=== PATIENT | female | born 2000 | race Caucasian/White ===

== ENCOUNTER → 2022-04-30 | Emergency (ER) | payer SELFPAY ==
[~2022-04-30] MED LIST: ACETAMINOPHEN 1000 MG/100 ML BAG IVPB ONE; LACTATED RINGERS SOLUTION 1000 ML INFUS.BAG IV ONE; ONDANSETRON 4 MG/2 ML VIAL IVPUSH ONE
[2022-04-30 21:14] VITALS: BMI 35.6
[2022-04-30 22:27] LABS: BASO % 0.5 % (0-2.0); HEMATOCRIT 38.7 % (32.4-45.2); HEMOGLOBIN 12.9 GM/dL (10.7-15.3); LYMPH % 7.8 % (8-40); MCH 27.3 pg (25.7-33.7); MCHC 33.4 g/dl (32.0-36.0); MEAN CELL VOLUME 81.6 fl (80-96); MEAN PLT VOLUME 8.2 fl (7.5-11.1); MONO % 5.8 % (3.8-10.2); NEUT % 85.9 % (42.8-82.8); PLATELET COUNT 223 10^3/uL (134-434); RBC 4.74 M/mm3 (3.60-5.2); RDW 14.6 % (11.6-15.6); WHITE BLOOD COUNT 11.9 K/mm3 (4.0-10.0)
[2022-04-30 22:37] LABS: CALCIUM 8.7 mg/dL (8.5-10.1)
[2022-04-30 22:38] LABS: ALBUMIN 3.6 g/dl (3.4-5.0); BLOOD UREA NITROGEN 9.3 mg/dL (7-18)
[2022-04-30 22:41] LABS: CREATININE 0.6 mg/dL (0.55-1.3)
[2022-04-30 22:42] LABS: BILIRUBIN,TOTAL 0.7 mg/dL (0.2-1)
[2022-04-30 22:43] LABS: TOT PROT 7.6 g/dl (6.4-8.2)
[2022-04-30 23:36] LABS: EPI CELLS 22 /uL (0-25.1); HYALINE CASTS 1 /uL (0-3.1); URINE APPEARANCE CLEAR; URINE BACTERIA 283 /uL (0-1359); URINE BILIRUBIN NEGATIVE (NEGATIVE); URINE COLOR DK YELLOW; URINE GLUCOSE (UA) NEGATIVE (NEGATIVE); URINE KETONE 3+ (NEGATIVE); URINE LEUK ESTERASE NEGATIVE (NEGATIVE); URINE NITRITE NEGATIVE (NEGATIVE); URINE PROTEIN TRACE (NEGATIVE); URINE RBC 38 /uL (0-23.9); URINE WBC 4 /uL (0-25.8)
[2022-05-01 00:29] VITALS: BP 104/60; PULSE 104; RESP 21; TEMP 97.2
== END | disposition left against medical advice (07) ==
LOC: JER 20:48
PROC: 3E033NZ Introduction of Analgesics, Hypnotics, Sedatives into Peripheral Vein, Percutaneous Approach (ICD-10-PCS; principal; 2022-04-30)
PROC: 3E033GC Introduction of Other Therapeutic Substance into Peripheral Vein, Percutaneous Approach (ICD-10-PCS; 2022-04-30)
DX: B34.9 Viral infection, unspecified (principal)
CPT/HCPCS: 0241U-QW; 36415; 80053; 81003; 84703; 85025; 87086; 99283-25